=== PATIENT | male | born 1990 | race Caucasian/White ===

== ENCOUNTER 2017-07-18 23:21 | Emergency (ER) | payer OTHER ==
[2017-07-19] MEDS ORDERED: DOXYcycline CAP(*) 100 MG PO ONE (00:25)
--- NOTE | 2017-07-19 00:26 | ED ---
Bite Injury/Animal - HPI Summary HPI Summary: 27 male presents with tick bite to the right thigh. He has not removed the tick. He states it is probably from today. He denies any fevers. He denies any spreading redness. He denies any body aches. He denies any history of tick exposure. He has no medical conditions. He is not allergy to doxycycline. - History of Current Complaint Chief Complaint: EDRashSkinAbscess Stated Complaint: TICK BITE Time Seen by Provider: 07/19/17 00:11 Pain Intensity: 0 - Allergies/Home Medications Allergies/Adverse Reactions: Allergies Allergy/AdvReac Type Severity Reaction Status Date / Time No Known Allergies Allergy Verified 07/25/13 16:53 PMH/Surg Hx/FS Hx/Imm Hx Endocrine/Hematology History: Denies: Hx Anticoagulant Therapy Cardiovascular History: Denies: Hx Hypertension Infectious Disease History: No Infectious Disease History: Denies: Traveled Outside the [place] in Last 30 Days - Family History Known Family History: Negative: Diabetes - Social History Alcohol Use: Rare Substance Use Type: Reports: None Smoking Status (MU): Never Smoked Tobacco Review of Systems Negative: Fever Negative: Chest Pain Negative: Shortness Of Breath Positive: Other - tick bite right thigh All Other Systems Reviewed And Are Negative: Yes Physical Exam Triage Information Reviewed: Yes Vital Signs On Initial Exam: Initial Vitals Temp Pulse Resp BP Pulse Ox 98.2 F 72 16 136/88 99 07/18/17 23:22 07/18/17 23:22 07/18/17 23:22 07/18/17 23:22 07/18/17 23:22 Vital Signs Reviewed: Yes Appearance: Positive: Well-Appearing Skin: Positive: Warm, Dry, Other - Tick bite right thigh with tick present Head/Face: Positive: Normal Head/Face Inspection Eyes: Positive: Normal, Conjunctiva Clear ENT: Positive: Pharynx normal Respiratory/Lung Sounds: Positive: Clear to Auscultation, Breath Sounds Present Cardiovascular: Positive: Normal, RRR Musculoskeletal: Positive: Normal Neurological: Positive: Normal Psychiatric: Positive: Normal Diagnostics - Vital Signs Vital Signs Temp Pulse Resp BP Pulse Ox 07/18/17 23:22 98.2 F 72 16 136/88 99 - Laboratory Lab Statement: Any lab studies that have been ordered have been reviewed, and results considered in the medical decision making process. Bite Injury Course/Dx - Course Course Of Treatment: 27 male presents with tick bite to the right thigh. He has not removed the tick. He states it is probably from today. He denies any fevers. He denies any spreading redness. He denies any body aches. He denies any history of tick exposure. He has no medical conditions. He is not allergy to doxycycline. on exam has tick bite right thigh. removed with tick twister. gave ppx dose of doxy even though was easy to remove tick. patient understand and agrees with plan. - Diagnoses Differential Diagnosis/HQI/PQRI: Positive: Puncture, Other - tick, lyme Provider Diagnosis: Tick bite Discharge - Sign-Out/Discharge Documenting (check all that apply): Discharge/Admit/Transfer - Discharge Plan Condition: Good Disposition: HOME Patient Education Materials: Tick Bite (ED) Referrals: No Primary Care Phys,NOPCP [Primary Care Provider] - Additional Instructions: You have been prophylactically treated for Lyme disease Return to ED if develop any rash or signs of infection - Billing Disposition and Condition Condition: GOOD Disposition: HOME
[2017-07-19 00:35] VITALS: BP 126/86
== END 2017-07-19 00:35 | disposition home or self-care (01) ==
LOC: ED 23:21
DX: S70.361A Insect bite (nonvenomous), right thigh, initial encounter (principal); W57.XXXA Bitten or stung by nonvenomous insect and other nonvenomous arthropods, initial encounter; Y93.9 Activity, unspecified; Y92.9 Unspecified place or not applicable
CPT/HCPCS: 99281; A9270-GY

== ENCOUNTER 2019-06-21 08:13 | Emergency (ER) | payer BC, OTHER ==
--- NOTE | 2019-06-21 08:56 | UC ---
[facility] HPI HPI Summary: 29 yo with a one week history of cough, with onset of fever to 102 last night. His cough has been worsening, and he has more discomfort in his chest. 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 Chest is sore in the low sternal area and in bilateral posterior chest. Cough productive. Activity has been affected and he is out of breath at work. Works at [employer], work is physical and he was unable to leave his shift. Hx of bronchitis in the past, has never used inhalers. Has a sore throat since this morning, bitemporal headache. Normal appetie overall. Drinking well. No nausea, vomiting No eye drainage, feels fatigued. [facility] PMH Previously Healthy: Yes Endocrine/Hematology History: Denies: Hx Anticoagulant Therapy Cardiovascular History: Denies: Hx Hypertension Respiratory History: Reports: Other Respiratory Problems/Disorders - past hx of bronchitis about 2014 Denies: Hx Asthma, Hx Chronic Bronchitis - Surgical History Surgical History: None Infectious Disease History: No - Family History Known Family History: Positive: Cardiac Disease - paternal unlces, Other - mother has breast cancer. Negative: Diabetes - Social History Occupation: Employed Full-time Lives: With Family - lives with 1 yo son, , [id number] and his partner. Alcohol Use: Occasionally Substance Use Type: Reports: None Smoking Status (MU): Former Smoker Type: Cigarettes Length of Time of Smoking/Using Tobacco: 1 PPD x 10 Years [facility] ROS All Other Systems Reviewed And Are Negative: Yes Positive: Fever, Fatigue Eyes: Negative Negative: Blurred Vision, Drainage ENT: Negative Cardiovascular: Negative Positive: Shortness Of Breath - with stair climbing and at work last night , Cough Gastrointestinal: Negative Negative: Vomiting, Diarrhea Genitourinary: Negative Musculoskeletal: Negative Skin: Negative Neurological/Mental Status: Negative Negative: Headache, Weakness Psychological: Normal [facility] PE Telehealth Physical Exam: Telehealth video shows a man in no acute distress. Normal color, speaks easily in full sentences without hesitation. Occasional cough observed, no paroxysms. He is alert with appropriate manner, normal affect. Appearance: Positive: Well-Appearing, No Pain Distress, Well-Nourished [facility] Course/Dx Assessment/Plan: Given fever and productive cough, will begin treatment with Azithromycin. Requests COVID testing and advised flu testing as well. Provider Diagnoses: Bronchitis UC Telehealth Disposition Provider Recommendation for Treatment: Urgent Care Telehealth Visit: Patient Consented Verbally to Telehealth Visit Telehealth Patient Statement: The patient should understand that they are communicating with their provider via a secure communication platform and that all the same privacy and confidentiality rules apply. They will also be responsible for copayments or coinsurances that apply to any Telehealth visit. Patient Identifiers: 2 Patient Identifiers Verified for Telehealth Visit - name and date of Telehealth Visit Start Time: 08:45 Telehealth Visit End Time: 09:00 Telehealth Provider Attestation: The above services were appropriate to provide in a Telehealth setting.
[2019-06-21 09:34] LABS: Influenza A Molecular Negative (Negative); Influenza B Molecular Negative (Negative)
== END 2019-06-21 09:20 | disposition home or self-care (01) ==
LOC: UCCORT 08:13
DX: J40 Bronchitis, not specified as acute or chronic (principal); R50.9 Fever, unspecified; Z20.828 Contact with and (suspected) exposure to other viral communicable diseases; Z91.030 Bee allergy status; Z87.891 Personal history of nicotine dependence
CPT/HCPCS: 87635; 99211; G0463